=== PATIENT | female | born 1970 | race African-American/Black ===

== ENCOUNTER 2016-10-21 18:49 | Emergency (ER) | payer BC, OTHER ==
[~2016-10-21] VITALS: Ht 167.6 cm; Wt 79.4 kg
[2016-10-21] MEDS ORDERED: LORazepam 1mg tab ORAL ONE (19:45)
[2016-10-21] MEDS ORDERED: ATIVAN0.5 MG ORAL (19:53)
[2016-10-21 21:26] VITALS: BP 110/72
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
== END 2016-10-21 21:28 | disposition home or self-care (01) ==
LOC: EMR 19:40
DX: F41.9 Anxiety disorder, unspecified (principal)
CPT/HCPCS: 93005; 99283

== ENCOUNTER 2019-01-09 17:05 | Emergency (ER) | payer BC, OTHER ==
[~2019-01-09] VITALS: Ht 167.6 cm; Wt 78.9 kg
[~2019-01-09 17:05] MED LIST: ATIVAN0.5 MG ORAL
[2019-01-09 17:16] VITALS: BP 108/66
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
--- NOTE | 2019-01-09 17:45 | NUR ---
ED Nurse Note: Patient leave AMA. DC instructions/prescription was given and explained to pt and verbalized understanding of teachings. All medical deviecs such as ID band removed. Pt is AAO x4, ambulatory and left with all personal belongings.
== END 2019-01-09 17:45 | disposition left against medical advice (07) ==
LOC: EMR 17:40
DX: O26.892 Other specified pregnancy related conditions, second trimester (principal); Z3A.00 Weeks of gestation of pregnancy not specified; V43.52XA Car driver injured in collision with other type car in traffic accident, initial encounter; Y92.410 Unspecified street and highway as the place of occurrence of the external cause
CPT/HCPCS: 99282